=== PATIENT | male | born 1980 | race Two or more races ===

== ENCOUNTER 2024-08-23 11:15 | Emergency (ER) | payer OTHER ==
[~2024-08-23] VITALS: Ht 162.6 cm; Wt 79.4 kg
[2024-08-23 11:25] VITALS: BP 151/95; TEMP 98.8; O2SAT 98
[2024-08-23] MEDS ORDERED: IBUP-1490 PO (12:25)
== END 2024-08-23 12:36 | disposition home or self-care (01) ==
LOC: ER 11:25
DX: M25.511 Pain in right shoulder (principal); I10 Essential (primary) hypertension
CPT/HCPCS: 73030-TC